=== PATIENT | male | born 1955 | race Two or more races ===

== ENCOUNTER 2020-11-13 12:39 | Inpatient (IN) | payer OTHER ==
[~2020-11-13] VITALS: Ht 182.9 cm; Wt 142.0 kg
[2020-11-13 13:37] LABS: Basophils # (auto) 0 10 ^3/uL (0-0.2); Basophils % (auto) 0.6 % (0.0-2.0); Eosinophils # (auto) 0 10 ^3/uL (0-0.8); Eosinophils % (auto) 0.3 % (0.0-7.0); Hematocrit 39.6 % (41.0-53.0); Hemoglobin 13.8 g/dL (13.5-17.5); Lymphocytes # (auto) 1.1 10 ^3/uL (0.4-5.4); Lymphocytes % (auto) 18.1 % (10.0-50.0); Mean Corpuscular Hemoglobin 32.1 pg (28.0-32.0); Mean Corpuscular Hgb Conc. 34.9 g/dL (32.0-36.0); Mean Corpuscular Volume 92.2 fL (80.0-100.0); Monocytes # (auto) 0.7 10 ^3/uL (0-1.3); Monocytes % (auto) 11.8 % (0.0-12.0); Neutrophils # (auto) 4.2 10 ^3/uL (1.6-8.6); Neutrophils % (auto) 69.2 % (37.0-80.0); Nucleated Red Blood Cells % 0.1 %; Red Cell Distribution Width 13.6 % (11.8-14.3)
[2020-11-13 13:56] LABS: Chloride 107 mmol/L (98-107); Potassium 3.8 mmol/L (3.5-5.1); Sodium 137 mmol/L (136-145)
[2020-11-13 14:13] LABS: Alanine Aminotransferase 47 U/L (16-61); Albumin 3.1 g/dL (3.4-5.0); Alkaline Phosphatase 76 U/L (45-117); Anion Gap 7 (5-15); Aspartate Aminotransferase 27 U/L (15-37); BUN/Creatinine Ratio 11.1; Bilirubin, Total 0.7 mg/dL (0.2-1.0); Blood Urea Nitrogen 17 mg/dL (7-18); Calcium 8.2 mg/dL (8.5-10.1); Carbon Dioxide 23 mmol/L (21-32); GFR African American 59 mL/min; GFR Non-African American 49 mL/min; Glucose 118 mg/dL (74-106); Magnesium 2.3 mg/dL (1.6-2.6); Total Protein 6.4 g/dL (6.4-8.2)
[2020-11-13] MEDS ORDERED: SODIUM CHLORIDE 0.9% 1,000 ML IV ONE (14:15)
[2020-11-13] MEDS ORDERED: NOREPINEPHRINE 8 MG/250ML KIT 250 ML IV ONE (14:40)
[2020-11-13] MEDS: NOREPINEPHRINE 8 MG/250ML KIT 250 ML IV SCH ×2 (14:57→17:16)
[2020-11-13] MEDS ORDERED: cefTRIAXone 1GM/50ML D5W 50 ML IV ONE (17:30)
[2020-11-13] MEDS ORDERED: DexAMETHasone SOD PHOS 10MG/1ML VIAL INJ IV ONE (17:30)
[2020-11-13] MEDS ORDERED: AZITHROMYCIN 500MG/ 250ML 250 ML IV ONE (17:30)
[2020-11-13] MEDS ORDERED: levoFLOXacin 250MG 50 ML IV ONE (20:00)
[2020-11-13 20:05] VITALS: BP 161/68
[2020-11-13] MEDS: methylPREDNISolone SOD SUCC 40 MG/ML VL IV SCH (22:10)
[2020-11-13 23:04] LABS: Urine Bacteria NONE SEEN /hpf (None Seen); Urine Blood Negative /uL (Negative); Urine Specific Gravity 1.014 (1.001-1.035); Urine WBC 1 /hpf (0 - 3)
[2020-11-14] MEDS ORDERED: IPRATROPIUM BROM 0.5 MG/2.5ML INH SOL NEB SCH
[2020-11-14] MEDS ORDERED: ALBUTEROL SULF 2.5 MG/0.5ML(0.5%) NEB SOLN NEB SCH
[2020-11-14] MEDS ORDERED: ACETAMINOPHEN 500 MG TAB PO PRN (03:15)
[2020-11-14] MEDS ORDERED: MORPHINE SULFATE INJECTION 2 MG/ML SYRG IV PRN (03:15)
[2020-11-14] MEDS ORDERED: DOCUSATE SOD 100 MG CAP PO PRN (03:15)
[2020-11-14] MEDS ORDERED: ACETAMINOPHEN 325 MG TAB PO PRN (03:15)
[2020-11-14] MEDS ORDERED: ONDANSETRON HCL 4 MG/2 ML VIAL IV PRN (03:15)
[2020-11-14] MEDS ORDERED: HYDROcodone-ACET 5/325MG TAB PO PRN (03:15)
[2020-11-14] MEDS ORDERED: DEXTROSE (50%) 50ML SYRG IV PRN (03:15)
[2020-11-14] MEDS ORDERED: NITROGLYCERIN 0.4 MG SL TAB SL PRN (03:15)
[2020-11-14 04:33] LABS: Basophils # (auto) 0 10 ^3/uL (0-0.2); Basophils % (auto) 0.3 % (0.0-2.0); Eosinophils # (auto) 0 10 ^3/uL (0-0.8); Eosinophils % (auto) 0.1 % (0.0-7.0); Hematocrit 43.6 % (41.0-53.0); Hemoglobin 14.7 g/dL (13.5-17.5); Lymphocytes # (auto) 0.5 10 ^3/uL (0.4-5.4); Lymphocytes % (auto) 13.2 % (10.0-50.0); Mean Corpuscular Hemoglobin 31.2 pg (28.0-32.0); Mean Corpuscular Hgb Conc. 33.7 g/dL (32.0-36.0); Mean Corpuscular Volume 92.6 fL (80.0-100.0); Monocytes # (auto) 0.1 10 ^3/uL (0-1.3); Monocytes % (auto) 3.3 % (0.0-12.0); Neutrophils # (auto) 3.3 10 ^3/uL (1.6-8.6); Neutrophils % (auto) 83.1 % (37.0-80.0); Red Blood Cells 4.71 10^6/uL (4.5-5.90); Red Cell Distribution Width 13.6 % (11.8-14.3)
[2020-11-14 04:41] LABS: Albumin 3.2 g/dL (3.4-5.0); Calcium 8.3 mg/dL (8.5-10.1); Potassium 4.4 mmol/L (3.5-5.1)
[2020-11-14 04:43] LABS: BUN/Creatinine Ratio 11.7
[2020-11-14 04:46] LABS: Bilirubin, Total 0.5 mg/dL (0.2-1.0); Total Protein 6.9 g/dL (6.4-8.2)
[2020-11-14] MEDS: SODIUM CHLOR 0.9% PF (SALINE LOCK) 10ML VIAL/SYR IV SCH ×3 (06:30→21:23)
[2020-11-14] MEDS: InsuLIN REG 1unit/0.01ml Soln (100units/ml) SC SCH ×4 (06:50→22:07)
[2020-11-14] MEDS: MORPHINE SULFATE 4 MG/ML SYR/VIAL IV PRN ×2 (06:51→20:26)
[2020-11-14] MEDS: ACCU-CHEK COMFORT CURVE STRIP VI SCH ×4 (06:52→21:23)
[2020-11-14] MEDS: cefTRIAXone 1GM/50ML D5W 50 ML IV SCH (09:22)
[2020-11-14] MEDS: BUDESONIDE (INHALATION) 180 MCG IH IN SCH ×2 (10:00→22:00)
[2020-11-14] MEDS ORDERED: DOXYCYCLINE 100MG/250ML 250 ML IV SCH (10:00)
[2020-11-14] MEDS ORDERED: ENOXAPARIN SOD 40 MG/0.4 ML SYRINGE SC SCH (10:00)
[2020-11-14] MEDS: FAMOTIDINE (10MG/ML) 2ML VL IV SCH ×2 (10:23→21:22)
[2020-11-14] MEDS: methylPREDNISolone SOD SUCC 40 MG/ML VL IV SCH (10:23)
[2020-11-14] MEDS: ZINC SULFATE 220mg CAP or TAB PO SCH (10:24)
[2020-11-14] MEDS: ENOXAPARIN SOD 40 MG/0.4 ML SYRINGE SC SCH ×2 (10:24→21:23)
[2020-11-14] MEDS: CHOLECALCIFEROL (VITD3) 2,000 UNIT CAP/TAB PO SCH (10:24)
[2020-11-14] MEDS: MULTIPLE VITAMIN TAB PO SCH (10:24)
[2020-11-14] MEDS: ASCORBIC ACID 1,000 MG TAB PO SCH (10:24)
[2020-11-14 14:14] VITALS: BP 147/80
[2020-11-14] MEDS ORDERED: DILT-14 PO (14:34)
[2020-11-14] MEDS ORDERED: HYDR-4072 PO (14:34)
[2020-11-14] MEDS ORDERED: LIRA18IN2 SC (14:34)
[2020-11-14] MEDS ORDERED: ATOR20TA50 PO (14:34)
[2020-11-14] MEDS ORDERED: ALBU108A5 INH (14:34)
[2020-11-14] MEDS ORDERED: LISI2.5T47 PO (14:34)
[2020-11-14] MEDS ORDERED: BACL20TA PO (14:34)
[2020-11-14] MEDS ORDERED: PROMETHAZINE HCL 6.25 MG/5 ML ORAL SYRUP PO PRN (18:00)
[2020-11-14] MEDS ORDERED: NICOTINE 21MG/24 HR TOPICAL PATCH TD ONE (18:00)
[2020-11-14] MEDS ORDERED: PROMETHAZINE-DM 5 ML ORAL SYRUP PO PRN (18:30)
[2020-11-14] MEDS ORDERED: guaiFENesin-CODEINE Liq 5 ML UD PO PRN (19:15)
[2020-11-14] MEDS ORDERED: REMDESIVIR PER PHARMACY 0 ML IV SCH (19:15)
[2020-11-14 20:00] VITALS: BP 124/74
[2020-11-14] MEDS ORDERED: BUDESONIDE (INHALATION) 0.5 MG/2 ML NEB NEB ONE (21:00)
[2020-11-14] MEDS ORDERED: ALBUTEROL SULF 2.5 MG/0.5ML(0.5%) NEB SOLN NEB ONE (21:00)
[2020-11-14] MEDS ORDERED: IPRATROPIUM BROM 0.5 MG/2.5ML INH SOL NEB ONE (21:00)
[2020-11-14 22:00] VITALS: BP 126/74
[2020-11-15] MEDS ORDERED: TEMAZEPAM 15 MG CAP PO ONE (00:45)
[2020-11-15 05:13] VITALS: BP 135/84
[2020-11-15] MEDS: ACCU-CHEK COMFORT CURVE STRIP VI SCH ×4 (06:57→21:20)
[2020-11-15] MEDS: InsuLIN REG 1unit/0.01ml Soln (100units/ml) SC SCH ×4 (06:57→21:43)
[2020-11-15] MEDS: SODIUM CHLOR 0.9% PF (SALINE LOCK) 10ML VIAL/SYR IV SCH ×3 (06:57→21:20)
[2020-11-15 07:29] LABS: Basophils # (auto) 0 10 ^3/uL (0-0.2); Basophils % (auto) 0.1 % (0.0-2.0); Eosinophils # (auto) 0 10 ^3/uL (0-0.8); Hematocrit 42.6 % (41.0-53.0); Hemoglobin 14.7 g/dL (13.5-17.5); Lymphocytes # (auto) 1.3 10 ^3/uL (0.4-5.4); Lymphocytes % (auto) 11.4 % (10.0-50.0); Mean Corpuscular Hemoglobin 31.7 pg (28.0-32.0); Mean Corpuscular Hgb Conc. 34.4 g/dL (32.0-36.0); Mean Corpuscular Volume 91.9 fL (80.0-100.0); Monocytes # (auto) 0.7 10 ^3/uL (0-1.3); Monocytes % (auto) 6.5 % (0.0-12.0); Neutrophils # (auto) 9.2 10 ^3/uL (1.6-8.6); Nucleated Red Blood Cells % 0.1 %; Red Blood Cells 4.63 10^6/uL (4.5-5.90); Red Cell Distribution Width 13.2 % (11.8-14.3); White Blood Cell 11.2 10^3/uL (4.4-10.8)
[2020-11-15 07:35] LABS: Albumin 3.3 g/dL (3.4-5.0); Calcium 9.3 mg/dL (8.5-10.1); Potassium 4.5 mmol/L (3.5-5.1)
[2020-11-15 07:41] LABS: BUN/Creatinine Ratio 17.8; Bilirubin, Total 0.6 mg/dL (0.2-1.0); Total Protein 6.6 g/dL (6.4-8.2)
[2020-11-15 09:00] VITALS: BP_SYST 133; BP_SYST 142; BP_DIAS 77; BP_DIAS 95
[2020-11-15] MEDS: cefTRIAXone 1GM/50ML D5W 50 ML IV SCH (09:00)
[2020-11-15] MEDS: FAMOTIDINE (10MG/ML) 2ML VL IV SCH ×2 (09:57→21:19)
[2020-11-15] MEDS: DexAMETHasone SOD PHOS 10MG/1ML VIAL INJ IV SCH (09:57)
[2020-11-15] MEDS: ZINC SULFATE 220mg CAP or TAB PO SCH (10:00)
[2020-11-15] MEDS: ENOXAPARIN SOD 40 MG/0.4 ML SYRINGE SC SCH ×2 (10:00→21:19)
[2020-11-15] MEDS: BUDESONIDE (INHALATION) 180 MCG IH IN SCH ×2 (10:00→22:02)
[2020-11-15] MEDS: NICOTINE 21MG/24 HR TOPICAL PATCH TD SCH (10:00)
[2020-11-15] MEDS: CHOLECALCIFEROL (VITD3) 2,000 UNIT CAP/TAB PO SCH (10:00)
[2020-11-15] MEDS: ASCORBIC ACID 1,000 MG TAB PO SCH (10:00)
[2020-11-15] MEDS: MULTIPLE VITAMIN TAB PO SCH (10:00)
[2020-11-15] MEDS ORDERED: TEMAZEPAM 15 MG CAP PO PRN (11:45)
[2020-11-15 13:00] VITALS: BP 142/79
[2020-11-15] MEDS ORDERED: REMDESIVIR 200 MG in NS 210ml LOADING DOSE ADULT IV ONE (15:00)
[2020-11-15 17:23] VITALS: BP 112/78
[2020-11-15] MEDS: BACLOFEN 10 MG TAB PO SCH (21:19)
[2020-11-15 22:00] VITALS: BP 131/66
[2020-11-15] MEDS: ALBUTEROL SULF HFA 90MCG INH 200DOSE IN PRN (22:03)
[2020-11-16 05:29] VITALS: BP 134/69
[2020-11-16] MEDS: InsuLIN REG 1unit/0.01ml Soln (100units/ml) SC SCH ×3 (06:18→17:06)
[2020-11-16] MEDS: SODIUM CHLOR 0.9% PF (SALINE LOCK) 10ML VIAL/SYR IV SCH ×2 (06:18→13:57)
[2020-11-16] MEDS: ACCU-CHEK COMFORT CURVE STRIP VI SCH ×3 (06:18→17:09)
[2020-11-16 06:39] LABS: Calcium 8.5 mg/dL (8.5-10.1); Potassium 3.7 mmol/L (3.5-5.1)
[2020-11-16 06:43] LABS: Bilirubin, Total 0.7 mg/dL (0.2-1.0); Total Protein 6.3 g/dL (6.4-8.2)
[2020-11-16] MEDS: FAMOTIDINE (10MG/ML) 2ML VL IV SCH (08:36)
[2020-11-16] MEDS: cefTRIAXone 1GM/50ML D5W 50 ML IV SCH (08:36)
[2020-11-16] MEDS: DexAMETHasone SOD PHOS 10MG/1ML VIAL INJ IV SCH (08:37)
[2020-11-16] MEDS: ZINC SULFATE 220mg CAP or TAB PO SCH (08:37)
[2020-11-16] MEDS: ENOXAPARIN SOD 40 MG/0.4 ML SYRINGE SC SCH (08:37)
[2020-11-16] MEDS: MULTIPLE VITAMIN TAB PO SCH (08:37)
[2020-11-16] MEDS: CHOLECALCIFEROL (VITD3) 2,000 UNIT CAP/TAB PO SCH (08:37)
[2020-11-16] MEDS: ASCORBIC ACID 1,000 MG TAB PO SCH (08:38)
[2020-11-16] MEDS: NICOTINE 21MG/24 HR TOPICAL PATCH TD SCH ×2 (08:39→10:00)
[2020-11-16 09:00] VITALS: BP 122/67
[2020-11-16] MEDS: BUDESONIDE (INHALATION) 180 MCG IH IN SCH (09:29)
[2020-11-16] MEDS: ALBUTEROL SULF HFA 90MCG INH 200DOSE IN PRN (09:29)
[2020-11-16] MEDS ORDERED: dilTIAZem 120MG ER CAP PO SCH (10:00)
[2020-11-16] MEDS ORDERED: LISINOPRIL 5 MG TAB PO SCH (10:00)
[2020-11-16] MEDS ORDERED: ATORVASTATIN 20 MG TAB PO SCH (10:00)
[2020-11-16] MEDS: HYDROcodone-ACET 10/325MG TAB PO PRN ×2 (10:15→15:58)
[2020-11-16] MEDS: BACLOFEN 10 MG TAB PO SCH (11:46)
[2020-11-16 13:00] VITALS: BP 143/72
[2020-11-16] MEDS ORDERED: REMDESIVIR 100mg 100 MG in SODIUM CHL 0.9% 230 ML IV SCH (15:00)
[2020-11-16 17:11] VITALS: BP 130/69
[2020-11-16] MEDS ORDERED: DEX4T PO (17:22)
[2020-11-16] MEDS ORDERED: ASCO10003 PO (17:22)
[2020-11-16 17:44] VITALS: BP 130/69
== END 2020-11-16 18:35 | disposition home or self-care (01) | DRG 177 ==
LOC: EDBD 12:39 → ER 12:39 → TELE 11-14 03:10 → TELE-EAST 11-14 13:33
PROVIDERS: ADMIT Nurse Practitioner Family; ATTEND Internal Medicine
PROC: XW033E5 Introduction of Remdesivir Anti-infective into Peripheral Vein, Percutaneous Approach, New Technology Group 5 (ICD-10-PCS; principal; 2020-11-15)
DX: U07.1 COVID-19 (principal); J12.82 Pneumonia due to coronavirus disease 2019; J96.21 Acute and chronic respiratory failure with hypoxia; J44.0 Chronic obstructive pulmonary disease with (acute) lower respiratory infection; J98.11 Atelectasis; N17.9 Acute kidney failure, unspecified; J44.1 Chronic obstructive pulmonary disease with (acute) exacerbation; Z68.41 Body mass index [BMI] 40.0-44.9, adult; E66.01 Morbid (severe) obesity due to excess calories; E88.09 Other disorders of plasma-protein metabolism, not elsewhere classified; I10 Essential (primary) hypertension; I95.9 Hypotension, unspecified; E11.9 Type 2 diabetes mellitus without complications; M54.9 Dorsalgia, unspecified; G89.29 Other chronic pain; Z99.81 Dependence on supplemental oxygen; Z71.3 Dietary counseling and surveillance
CPT/HCPCS: 36415; 71045; 80053; 81001; 82962; 83036; 83735; 84484; 85025; 85379; 87426; 93005; 93970; 94640; 94660; 94762; 96361; 96365; 96366; 96367; 96368; 96375; 99291; G0378; J0696; J1100; J1815; J3490